=== PATIENT | female | born 1990 | race Caucasian/White ===

== ENCOUNTER 2022-04-16 08:38 | Emergency (ER) | payer OTHER ==
[2022-04-16 08:50] VITALS: BP 135/86; PULSE 108; RESP 18; TEMP 98.6
[2022-04-16] MEDS ORDERED: SODIUM CHLORIDE 0.9% 1,000 ML IV ONE (08:56)
[2022-04-16] MEDS ORDERED: KETOROLAC 15 MG/ML 1 ML VIAL IVP STA (08:56)
[2022-04-16] MEDS ORDERED: ONDANSETRON 4 MG/2 ML VIAL IVP STA (08:57)
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
[2022-04-16] MEDS ORDERED: ACET/COD 300 MG/30 MG STARTER PACK 6 TAB BTL PO STA (09:59)
== END 2022-04-16 10:28 | disposition home or self-care (01) ==
LOC: EC 08:38
DX: M79.601 Pain in right arm (principal); Z88.0 Allergy status to penicillin
CPT/HCPCS: 73030; 73060; 71046; 99283; 96374; 96375; 96361; J2405; J1885

== ENCOUNTER 2022-04-21 08:33 | Emergency (ER) | payer OTHER ==
[2022-04-21 08:52] VITALS: BP 146/80; PULSE 117; RESP 20; TEMP 98.4
[2022-04-21] MEDS ORDERED: MORPHINE SULFATE 4 MG/ML SYRINGE ONE (12:20)
== END 2022-04-21 12:17 | disposition home or self-care (01) ==
LOC: EC 08:33
DX: M79.603 Pain in arm, unspecified (principal); M25.511 Pain in right shoulder
CPT/HCPCS: 99283; 96374; J2270

== ENCOUNTER 2024-07-18 08:18 | Day surgery (SDC) | payer OTHER ==
[2024-07-18] MEDS ORDERED: DEXAMETHASONE SOD PHOSPHATE 4 MG/ML 1 ML VIAL ONE (08:53)
[2024-07-18] MEDS ORDERED: ONDANSETRON 4 MG/2 ML VIAL ONE ×2 (08:53→12:10)
[2024-07-18] MEDS ORDERED: NEOSTIGMINE 1 MG/ML 10 ML VIAL ONE (09:25)
[2024-07-18] MEDS ORDERED: GLYCOPYRROLATE 0.2 MG/ML 2 ML VIAL ONE (09:25)
[2024-07-18] MEDS ORDERED: ROCURONIUM 10 MG/ML (5 ML VIAL) IV ONE (09:25)
[2024-07-18] MEDS ORDERED: PROPOFOL 10 MG/ML 20 ML VIAL IV ONE (09:25)
[2024-07-18] MEDS ORDERED: fentaNYL (PF) 50 MCG/ML 2 ML AMP ONE (09:25)
[2024-07-18] MEDS ORDERED: MIDAZOLAM 2 MG/2 ML VIAL ONE (09:25)
[2024-07-18] MEDS ORDERED: SUCCINYLCHOLINE CHLORIDE 200 MG/10 ML VIAL IV ONE (09:25)
[2024-07-18] MEDS ORDERED: LIDOCAINE HCL/PF 20 MG/ML 10 ML AMP ONE (09:25)
[2024-07-18] MEDS ORDERED: KETOROLAC 15 MG/ML 1 ML VIAL ONE (11:12)
[2024-07-18] MEDS ORDERED: HYDROmorphone 0.5 MG/0.5 ML SYRINGE ONE (11:12)
[2024-07-18] MEDS ORDERED: BUPIVACAINE (PF) 0.5% 30 ML VIAL ONE (19:22)
[2024-07-18] MEDS ORDERED: LACTATED RINGERS 1,000 ML BAG ONE (19:22)
== END 2024-07-18 12:51 ==
LOC: OR 08:18
PROVIDERS: ATTEND Obstetrics & Gynecology
DX: Z30.2 Encounter for sterilization (principal); F32.A Depression, unspecified; F12.90 Cannabis use, unspecified, uncomplicated; Z88.0 Allergy status to penicillin
CPT/HCPCS: 81025; 88302; 58661; 11982; J2250; J0330; J1100; J2710; J2405; J3010; J2001; J1885; J2704; J1170; J0665; J1596